=== PATIENT | male | born 1955 ===

== ENCOUNTER 2018-07-21 12:12 | Inpatient (IN) | payer BC, MEDICARE ==
[2018-07-21 12:12] VITALS: BMI 40.1
--- NOTE | 2018-07-21 13:24 | C.PDOC ---
History Of Present Illness 62 y/o male presents to the ER complaining of right sided headache which has been present for the past 3- 4 days. Patient states that he heard a "popping" sound, he had nosebleed and bleeding from his mouth for 1 minute. Patient repo rts that the headache is worse with movement of his head and he has associated dizziness. He notes that his vision has become more blurry recently. Denies having LOC, weakness, and numbness. <Taylor Campos - Last Filed: 07/21/18 19:15> History Per: Patient History/Exam Limitations: no limitations Onset/Duration Of Symptoms: Days Current Symptoms Are (Timing): Still Present Severity: Moderate <Taylor Campos - Last Filed: 07/21/18 19:15> <Jose De Jesus Ulrich - Last Filed: 07/21/18 19:32> Time Seen by Provider: 07/21/18 13:18 Chief Complaint (Nursing): Chest Pain Past Medical History Reviewed: Historical Data, Nursing Documentation, Vital Signs Vital Signs: Last Vital Signs Temp 98.4 F 07/21/18 12:21 Pulse 108 H 07/21/18 12:21 Resp 18 07/21/18 12:21 BP 148/90 07/21/18 12:21 Pulse Ox 97 07/21/18 12:21 - Medical History PMH: Arthritis, CAD, Diabetes, HTN, Hypercholesterolemia, Hypothyroidism Denies: Chronic Kidney Disease Other Surgeries: Hx of surgeries Family History: States: No Known Family Hx - Social History Hx Alcohol Use: No Hx Substance Use: No <Taylor Campos - Last Filed: 07/21/18 19:15> Vital Signs: Last Vital Signs Temp 98.3 F 07/21/18 18:55 Pulse 91 H 07/21/18 18:55 Resp 19 07/21/18 18:55 BP 125/79 07/21/18 18:55 Pulse Ox 97 07/21/18 19:18 <Jose De Jesus Ulrich - Last Filed: 07/21/18 19:32> Review Of Systems Except As Marked, All Systems Reviewed And Found Negative. Constitutional: Negative for: Fever, Chills Eyes: Positive for: Vision Change Neurological: Positive for: Headache, Dizziness. Negative for: Weakness, Numbness <Taylor Campos - Last Filed: 07/21/18 19:15> Physical Exam - Physical Exam Appears: Non-toxic, No Acute Distress Skin: Normal Color, Warm, Dry Head: Atraumatic, Normacephalic Eye(s): bilateral: EOMI, right: Other (mild conjunctival injection), left: Normal Inspection Ear(s): Bilateral: Normal Nose: Normal, No Epistaxis Oral Mucosa: Moist Throat: Normal, No Erythema, No Exudate Neck: Supple Chest: Symmetrical, No Tenderness (chest wall tenderness) Cardiovascular: Rhythm Regular Respiratory: Normal Breath Sounds, No Rales, No Rhonchi, No Wheezing Gastrointestinal/Abdominal: Soft, No Tenderness, No Guarding, No Rebound, Other (obese) Neurological/Psych: Oriented x3, Normal Speech <Taylor Campos - Last Filed: 07/21/18 19:15> ED Course And Treatment - Laboratory Results Result Diagrams: 07/21/18 13:44 07/21/18 13:44 O2 Sat by Pulse Oximetry: 97 (RA) Pulse Ox Interpretation: Normal - Other Rad CXR X-Ray: Viewed By Me, Read By Radiologist Interpretation: Date of service: 07/21/2018. PROCEDURE: CHEST RADIOGRAPH, 1 VIEW. HISTORY: chest pain. COMPARISON: None available. FINDINGS: LUNGS: Poor inspiration with low lung volumes, crowded bronchovascular markings and mild bibasilar atelectasis. PLEURA: No pneumothorax or pleural fluid seen. CARDIOVASCULAR: Marked cardiomegaly. OSSEOUS STRUCTURES: No significant abnormalities. VISUALIZED UPPER ABDOMEN: Normal. OTHER FINDINGS: None. IMPRESSION: Poor inspiration with low lung volumes, crowded bronchovascular markings and mild bibasilar atelectasis. - CT Scan/US CT-Head Other Rad Studies (CT/US): Read By Radiologist, Radiology Report Reviewed CT/US Interpretation: Date of service: 07/21/2018. PROCEDURE: CT HEAD WITHOUT CONTRAST. HISTORY: headache, dizziness. COMPARISON: None available. TECHNIQUE: Axial computed tomography images were obtained through the head/brain without intravenous contrast. Radiation dose: Total exam DLP = 1279.39 mGy-cm. This CT exam was performed using one or more of the following dose reduction techniques: Automated exposure control, adjustment of the mA and/or kV according to patient size, and/or use of iterative reconstruction technique. FINDINGS: HEMORRHAGE: No intracranial hemorrhage. BRAIN: Diffuse atrophy with prominence of the ventricles and sulci noted. No mass effect or edema. Intracranial atherosclerosis. The laguerre-white matter differentiation appears intact. Please note that MRI with diffusion imaging is more sensitive in the detection of acute ischemic event. VENTRICLES: No hydrocephalus. CALVARIUM: Unremarkable. PARANASAL SINUSES: Unremarkable as visualized. No significant inflammatory changes. MASTOID AIR CELLS: Unremarkable as visualized. No inflammatory changes. OTHER FINDINGS: None. IMPRESSION: No acute intracranial pathology identified. Findings as above. <Taylor Campos - Last Filed: 07/21/18 19:15> - Laboratory Results Result Diagrams: 07/21/18 13:44 07/21/18 13:44 <Jose De Jesus Ulrich - Last Filed: 07/21/18 19:32> Medical Decision Making Medical Decision Making: Plan: --Labs --EKG --CXR --CT-Head --IV Fluids --Aspirin PO The case was discussed with Dr. Quiroz (Ophto oncall) who agrees that the patient n eeds admission but needs a temporal artery biopsy. Case was discussed with Dr. Pozo (neuro oncall) who states to call [facility]. Case was discussed wtih Dr. Escobedo who states he will see the patient and consult for possible biopsy. <Taylor Campos - Last Filed: 07/21/18 19:15> Disposition - Disposition Disposition Time: 19:18 <Taylor Campos - Last Filed: 07/21/18 19:15> Discussed With Dr.: Yemi Gifford Jr. Comment: accepted the pt on his service and took over the care at 7:30 PM Doctor Will See Patient In The: ED Counseled Patient/Family Regarding: Studies Performed, Diagnosis <Jose De Jesus Ulrich - Last Filed: 07/21/18 19:32> - Disposition Disposition: HOSPITALIZED Condition: STABLE Forms: [facility] (Thai) - Clinical Impression Clinical Impression: Intractable headache, Temporal arteritis - PA / MACHINE STAMPER / Resident Statement MD/DO has reviewed & agrees with the documentation as recorded. - Scribe Statement The provider has reviewed the documentation as recorded by the Karen Cueto Provider Attestation All medical record entries made by the Scribe were at my direction and personally dictated by me. I have reviewed the chart and agree that the record accurately reflects my personal performance of the history, physical exam, medical decision making, and the department course for this patient. I have also personally directed, reviewed, and agree with the discharge instructions and disposition. <Taylor Campos - Last Filed: 07/21/18 19:15> Physician Patient Turnover Patient Signed Over To: Jose De Jesus Ulrich Handoff Comments: Pending re-eval and admission <Taylor Campos - Last Filed: 07/21/18 19:15> Decision To Admit <Taylor Campos - Last Filed: 07/21/18 19:15> - Pt Status Changed To: Hospital Disposition Of: Inpatient - Admit Certification Admit to Inpatient:: After my assessment, the patient will require hospitalization for at least two midnights. This is because of the severity of symptoms shown, intensity of services needed, and/or the medical risk in this patient being treated as an outpatient. - InPatient: Physician Admission Certification: I certify that this patient requires 2 or more midnights of care for the following reason:: After my assessment, the patient will require hospitalization for at least two midnights. This is because of the severity of symptoms shown, intensity of services needed, and/or the medical risk in this patient being treated as an outpatient. - . Bed Request Type: Regular Admitting Physician: Yemi Gifford Jr. <Jose De Jesus Ulrich - Last Filed: 07/21/18 19:32> - . Patient Diagnosis: Intractable headache, Temporal arteritis
[2018-07-21] MEDS ORDERED: Aspirin 325 mg EC Tablets PO STA (13:25)
[2018-07-21 13:51] LABS: BASO # 0.1 K/uL (0.0-0.2); BASO % 1.4 % (0.0-2.0); EOS # 0.5 K/uL (0.0-0.7); EOS % 6.6 % (0.0-4.0); HEMOGLOBIN 13.6 g/dL (12.0-18.0); LYMPH # 2.7 K/uL (1.0-4.3); LYMPH % 34.8 % (20.0-40.0); MEAN CELL VOLUME 84.5 fL (80.0-94.0); MEAN CORPUSCULAR HEMOGLOBIN 29.1 pg (27.0-31.0); MEAN CORPUSCULAR HGB CONC 34.5 g/dL (33.0-37.0); MEAN PLATELET VOLUME 8.1 fL (7.2-11.7); MONO # 0.6 K/uL (0.0-0.8); MONO % 7.7 % (0.0-10.0); NEUT # 3.8 K/uL (1.8-7.0); NEUT % 49.5 % (50.0-75.0); NRBC % 0.1 % (0.0-2.0); RBC 4.66 Mil/uL (4.40-5.90); RED CELL DISTRIBUTION WIDTH 13.6 % (11.5-14.5); WHITE BLOOD COUNT 7.7 K/uL (4.8-10.8)
[2018-07-21 14:02] LABS: INR 1.1; PROTHROMBIN TIME 12.5 SECONDS (9.7-12.2)
[2018-07-21 14:03] LABS: BLOOD UREA NITROGEN 11 mg/dL (9-20); GFR NON-AFRICAN AMERICAN > 60
[2018-07-21 14:04] LABS: ALB/GLOB RATIO 1.2 (1.0-2.1); ALT/SGPT 24 U/L (21-72); AST/SGOT 18 U/L (17-59); CALCIUM 9.2 mg/dl (8.6-10.4)
--- NOTE | 2018-07-21 14:11 | RAD ---
Date of service: 07/21/2018 PROCEDURE: CHEST RADIOGRAPH, 1 VIEW HISTORY: chest pain COMPARISON: None available. FINDINGS: LUNGS: Poor inspiration with low lung volumes, crowded bronchovascular markings and mild bibasilar atelectasis. PLEURA: No pneumothorax or pleural fluid seen. CARDIOVASCULAR: Marked cardiomegaly. OSSEOUS STRUCTURES: No significant abnormalities. VISUALIZED UPPER ABDOMEN: Normal. OTHER FINDINGS: None. IMPRESSION: Poor inspiration with low lung volumes, crowded bronchovascular markings and mild bibasilar atelectasis.
[2018-07-21 14:15] LABS: B-TYPE NATRIURETIC PEPTIDE 31.1 pg/mL (0-900)
[2018-07-21] MEDS ORDERED: Sodium Chloride 0.9% 1,000 ML IV ONE (14:43)
[2018-07-21] MEDS ORDERED: DiphenhydrAMINE 50 mg/ml Inj IVP STA (14:43)
[2018-07-21] MEDS ORDERED: Sodium Chloride 0.9% 1,000 ML ONE (15:05)
--- NOTE | 2018-07-21 15:50 | CT ---
Date of service: 07/21/2018 PROCEDURE: CT HEAD WITHOUT CONTRAST. HISTORY: headache, dizziness COMPARISON: None available. TECHNIQUE: Axial computed tomography images were obtained through the head/brain without intravenous contrast. Radiation dose: Total exam DLP = 1279.39 mGy-cm. This CT exam was performed using one or more of the following dose reduction techniques: Automated exposure control, adjustment of the mA and/or kV according to patient size, and/or use of iterative reconstruction technique. FINDINGS: HEMORRHAGE: No intracranial hemorrhage. BRAIN: Diffuse atrophy with prominence of the ventricles and sulci noted. No mass effect or edema. Intracranial atherosclerosis. The laguerre-white matter differentiation appears intact. Please note that MRI with diffusion imaging is more sensitive in the detection of acute ischemic event. VENTRICLES: No hydrocephalus. CALVARIUM: Unremarkable. PARANASAL SINUSES: Unremarkable as visualized. No significant inflammatory changes. MASTOID AIR CELLS: Unremarkable as visualized. No inflammatory changes. OTHER FINDINGS: None. IMPRESSION: No acute intracranial pathology identified. Findings as above.
[2018-07-21] MEDS ORDERED: DiphenhydrAMINE 50 mg/ml Inj ONE (16:21)
[2018-07-21] MEDS ORDERED: Dextrose 50% SYRINGE Inj (50 ml) IV PRN (20:47)
[2018-07-21] MEDS ORDERED: Glucagon Recombinant 1 mg Inj IM PRN (20:47)
[2018-07-21] MEDS ORDERED: methylPREDNISolone 1 GM in Sodium Chloride 0.9% 250 ML IV ONE (21:00)
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
[2018-07-21] MEDS: (Novolin R) Insulin Human Regular 100 units/ml vial SC SCH (21:41)
[2018-07-21] MEDS ORDERED: (Novolin R) Insulin Human Regular 100 units/ml vial ONE (21:43)
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
[2018-07-21] MEDS ORDERED: Insulin Detemir 100 units/ml Vial (Levemir) SC SCH (22:00)
[2018-07-22] MEDS ORDERED: (Novolin R) Insulin Human Regular 100 units/ml vial SC ONE (06:17)
--- NOTE | 2018-07-22 08:01 | CP.PCM.PN ---
Subjective - Date & Time of Evaluation Date of Evaluation: 07/22/18 Time of Evaluation: 06:45 - Subjective Subjective: General Surgery: Dr Escobedo Pt S&E. CONRADO. Reports headache improved. Still present to some degree on right side. Vision still blurry. Has not been started on steroid therapy. Objective - Vital Signs/Intake and Output Vital Signs (last 24 hours): Temp Pulse Resp BP Pulse Ox 98.2 F 73 20 132/83 97 07/22/18 00:00 07/22/18 00:00 07/22/18 00:00 07/22/18 00:00 07/22/18 00:00 Intake and Output: 07/22/18 07/22/18 06:59 18:59 Intake Total 490 Balance 490 - Medications Medications: Current Medications Dextrose (Dextrose 50% Inj) 0 ml IV STAT PRN; Protocol PRN Reason: Hypoglycemia Protocol Dextrose (Glutose 15) 0 gm PO ONCE PRN; Protocol PRN Reason: Hypoglycemia Protocol Glucagon (Glucagen Diagnostic Kit) 0 mg IM STAT PRN; Protocol PRN Reason: Hypoglycemia Protocol Dextrose (Dextrose 5% In Water 1000 Ml) 1,000 mls @ 0 mls/hr IV .Q0M PRN; Pro tocol PRN Reason: Hypoglycemia Protocol Influenza Virus Vaccine (Fluzone Quad [id number]) 60 mcg IM .ONCE ONE Stop: 07/24/18 10:06 Insulin Detemir (Levemir) 12 unit SC [facility] Last Admin: 07/21/18 22:23 Dose: 12 unit Insulin Human Regular (Novolin R) 0 unit SC [facility]; Protocol Last Admin: 07/21/18 21:41 Dose: 3 units Pneumococcal Polyvalent Vaccine (Pneumovax 23 Vaccine) 0.5 ml IM .ONCE ONE Stop: 07/24/18 10:01 - Labs Labs: 07/21/18 13:44 07/21/18 13:44 PT 12.5 SECONDS (9.7-12.2) H 07/21/18 13:44 INR 1.1 07/21/18 13:44 APTT 31 SECONDS (21-34) 07/21/18 13:44 - Constitutional Appears: Non-toxic, No Acute Distress - ENT Exam ENT Exam: Mucous Membranes Moist - Respiratory Exam Respiratory Exam: absent: Accessory Muscle Use, Respiratory Distress - Cardiovascular Exam Cardiovascular Exam: REGULAR RHYTHM. absent: Tachycardia - GI/Abdominal Exam GI & Abdominal Exam: Soft. absent: Distended, Firm, Tenderness - Neurological Exam Neurological Exam: Alert, Awake, Oriented x3 - Psychiatric Exam Psychiatric exam: Normal Affect, Normal Mood Assessment and Plan - Assessment and Plan (Free Text) Assessment: 62M w/ right sided headache - possible temporal arteritis Plan: no urgency for biopsy can be done later in week or as outpatient recommend empiric therapy w/ appropriately dosed prednisone d/w Dr Gregg Brandt, PGY4
[2018-07-22] MEDS: (Novolin R) Insulin Human Regular 100 units/ml vial SC SCH ×4 (08:38→22:01)
--- NOTE | 2018-07-22 13:16 | CT ---
Date of service: 07/22/2018 PROCEDURE: CT NECK WITHOUT CONTRAST HISTORY: pt with headache and neck tenderness COMPARISON: None available. TECHNIQUE: CT of the neck without intravenous contrast. Coronal and sagittal reformats generated. Radiation dose: DLP 480.72 mGy-cm This CT exam was performed using one or more of the following dose reduction techniques: Automated exposure control, adjustment of the mA and/or kV according to patient size, and/or use of iterative reconstruction technique. FINDINGS: NASOPHARYNX: Unremarkable. SUPRAHYOID NECK: Parapharyngeal spaces are clear. A normal epiglottis is identified. There is asymmetry with soft tissue thickening apparent at the right vallecular, likely due to vallecular collapse. However, evaluation is grossly limited by the absence of intravenous contrast. Correlation with contrast-enhanced computed tomography and direct visual inspection is advised. The left valleculae is unremarkable. The piriform sinuses are grossly normal. INFRAHYOID NECK: The larynx is collapsed and is suboptimally evaluated. There is no gross abnormality. The vocal cords are not evaluated. MASS: None. GLANDS: Parotid and submandibular glands unremarkable. Normal size thyroid gland, without nodule. LYMPH NODES: Shotty level 1 and 2 cervical nodes without significant enlarged cervical lymph nodes identified. CERVICAL SPINE: No fracture or focal lesion. Degenerative disc disease C4-5 through C6-7. OTHER FINDINGS: None. IMPRESSION: Shotty cervical lymph nodes without significant lymphadenopathy. Asymmetry of the right vallecula possibly due to collapse. However, examination grossly limited by the lack of intravenous contrast administration. Recommend correlation with contrast-enhanced CT examination of the neck as well as direct visual inspection at the right vallecular. Larynx collapsed. No other significant abnormality.
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
--- NOTE | 2018-07-22 13:49 | CP.PCM.PN ---
Subjective - Date & Time of Evaluation Date of Evaluation: 07/22/18 Time of Evaluation: 09:15 - Subjective Subjective: PGY-[address] Gifford Patient is seen and examined at bedside. Patient states headaches on right side of face and behind ear are improving. Patient states headache comes and goes. Patient admit to unchanged blurry vision. Patient denies fevers, chills, chest pain, shortness of breath, nausea, vomiting, constipation, or diarrhea. Patient states his blood sugars were read as high this morning. Objective - Vital Signs/Intake and Output Vital Signs (last 24 hours): Temp Pulse Resp BP Pulse Ox 97.9 F 87 20 123/73 99 07/22/18 08:00 07/22/18 08:00 07/22/18 08:00 07/22/18 08:00 07/22/18 08:00 Intake and Output: 07/22/18 07/22/18 06:59 18:59 Intake Total 490 Balance 490 - Medications Medications: Current Medications Dextrose (Dextrose 50% Inj) 0 ml IV STAT PRN; Protocol PRN Reason: Hypoglycemia Protocol Dextrose (Glutose 15) 0 gm PO ONCE PRN; Protocol PRN Reason: Hypoglycemia Protocol Glimepiride (Amaryl) 4 mg PO Q12H [facility] Last Admin: 07/22/18 12:16 Dose: 4 mg Glucagon (Glucagen Diagnostic Kit) 0 mg IM STAT PRN; Protocol PRN Reason: Hypoglycemia Protocol Heparin Sodium (Porcine) (Heparin) 5,000 units SC Q12 [facility] Last Admin: 07/22/18 11:00 Dose: 5,000 units Dextrose (Dextrose 5% In Water 1000 Ml) 1,000 mls @ 0 mls/hr IV .Q0M PRN; Protocol PRN Reason: Hypoglycemia Protocol Influenza Virus Vaccine (Fluzone Quad [id number]) 60 mcg IM .ONCE ONE Stop: 07/24/18 10:06 Insulin Detemir (Levemir) 12 unit SC Q12 [facility] Insulin Human Regular (Novolin R) 0 unit SC ACHS [facility]; Protocol Last Admin: 07/22/18 11:39 Dose: 12 units Methylprednisolone (Solu-Medrol) 125 mg IV DAILY [facility] Pneumococcal Polyvalent Vaccine (Pneumovax 23 Vaccine) 0.5 ml IM .ONCE ONE Stop: 07/24/18 10:01 - Labs Labs: 07/21/18 13:44 10/08/18 13:44 PT 12.5 SECONDS (9.7-12.2) H 07/21/18 13:44 INR 1.1 07/21/18 13:44 APTT 31 SECONDS (21-34) 07/21/18 13:44 - Constitutional Appears: Non-toxic, No Acute Distress - Head Exam Head Exam: ATRAUMATIC, NORMAL INSPECTION, NORMOCEPHALIC Additional comments: no tenderness on palpation left temporal area. - Eye Exam Eye Exam: EOMI, Normal appearance, PERRL Pupil Exam: NORMAL ACCOMODATION - ENT Exam ENT Exam: Mucous Membranes Moist, Normal Exam - Neck Exam Neck Exam: Full ROM, Normal Inspection - Respiratory Exam Respiratory Exam: Clear to Ausculation Bilateral, NORMAL BREATHING PATTERN. absent: Rales, Rhonchi, Wheezes - Cardiovascular Exam Cardiovascular Exam: REGULAR RHYTHM Additional comments: +S3 sound on ascultation - GI/Abdominal Exam GI & Abdominal Exam: Distended, Soft, Tenderness, Normal Bowel Sounds Additional comments: right and left lower quadrant pain on deep palpation - Extremities Exam Extremities Exam: Full ROM, Normal Capillary Refill, Normal Inspection - Back Exam Back Exam: NORMAL INSPECTION - Neurological Exam Neurological Exam: Alert, Awake, CN II-XII Intact, Oriented x3 Neuro motor strength exam: Left Upper Extremity: 5, Right Upper Extremity: 5 - Psychiatric Exam Psychiatric exam: Normal Affect, Normal Mood - Skin Skin Exam: Dry, Intact, Normal Color, Warm Assessment and Plan - Assessment and Plan (Free Text) Plan: Headache, r/o temporal arteritis - pt with R-sided headache and vision changes - CT head: no acute findings - CXR: mild bibasilar atelectasis - CT soft tissue/neck- no significant findings - EKG: sinus tachy at 104 bpm with LAD - ESR elevated at 45 - ED course : solumedrol 1000mg IV in ED, reglan 10 IV in ED - f/u MRA head w/o contrast - test done, results pending - Ophtho consulted, Dr. Quiroz - recommends temporal artery biopsy - Vascular Sx consulted, Dr. Escobedo- no urgency for bx, can be done later in week or as outpatient. Recommend empiric therapy with approriate dose prednisone. will continue to follow up with surgery in terms of bx Meds: Prednisone 125mg IV Qdaily DM - FSG in ED: 330 - POC glucose - 464 - accuchecks ACHS - levemir 12u Q12 - glimepiride 4mg PO Q12hr - sliding scale high dose ACHS - hypoglycemia protocol S3 Heart sound, r/o cardiac abnormality - F/u echo - pending results PPX: DVT: SCDs DM diet pain management - tylenol 650mg PO PRN for moderate pain Plan discussed with Dr Gfiford. Medical Management as per Dr Balta Elam, PGY-1
--- NOTE | 2018-07-22 21:22 | CON ---
DATE: 07/22/2018 HISTORY OF PRESENT ILLNESS: The patient reports about a 5-day history of vision loss in his right eye. He does describe a headache with loss of vision. He reports that each day the vision got worse, and he feels that the vision is getting dimmer. He also reports no other ocular history. He reports he has not seen an foreclosure specialist before at all. He does report a history of diabetes. He reports no ocular surgeries or lasers. MEDICATIONS: He reports no oral medications. ALLERGIES: HE REPORTS THAT HE HAS ALLERGY TO METFORMIN. PHYSICAL EXAMINATION: On today's exam, his vision in his right eye is 2400 with a near card. His left eye is 20/80 with a near card. He has an afferent pupillary defect in the right eye. He has nuclear sclerotic cataracts in both eyes, and his eye pressure is 14 mmHg in both eyes. His posterior exam shows significant cupping. He has 0.9 nerves in both eyes with pallor in his right eye. He has no retinal hemorrhages or retinal edema. His extraocular movements are within normal limits. ASSESSMENT: 1. He has cataracts in both eyes. 2. The patient is being admitted for temporal arteritis with a history of right vision loss, elevated erythrocyte sedimentation rate. There is a neural and vascular consult to check on the patient. He is being treated with IV steroids for possible temporal arteritis. 3. He does appear to have signs of glaucoma. His pressures are within normal limits today. When he is discharged, he is to make an appointment, but he most likely need treatment for his glaucoma and further evaluation. He has no signs of diabetic retinopathy in both eyes. If there are any questions, please contact to our office [phone]. Darvin Quiroz MD
[2018-07-22] MEDS: Insulin Detemir 100 units/ml Vial (Levemir) SC SCH (22:02)
[2018-07-23 07:27] LABS: BASO % 0.3 % (0.0-2.0); HEMOGLOBIN 13.1 g/dL (12.0-18.0); LYMPH # 2.4 K/uL (1.0-4.3); LYMPH % 17.9 % (20.0-40.0); MEAN CELL VOLUME 84.4 fL (80.0-94.0); MEAN CORPUSCULAR HGB CONC 34.3 g/dL (33.0-37.0); MONO # 0.7 K/uL (0.0-0.8); MONO % 5.3 % (0.0-10.0); NEUT # 10.4 K/uL (1.8-7.0); NEUT % 76.5 % (50.0-75.0); RBC 4.54 Mil/uL (4.40-5.90); RED CELL DISTRIBUTION WIDTH 13.5 % (11.5-14.5)
[2018-07-23] MEDS: (Novolin R) Insulin Human Regular 100 units/ml vial SC SCH ×4 (07:30→21:49)
[2018-07-23 07:33] LABS: WHITE BLOOD COUNT 13.7 K/uL (4.8-10.8)
[2018-07-23 07:52] LABS: ALB/GLOB RATIO 1.3 (1.0-2.1); ALBUMIN 3.7 g/dL (3.5-5.0); ALT/SGPT 19 U/L (21-72); AST/SGOT 14 U/L (17-59); BLOOD UREA NITROGEN 13 mg/dL (9-20); CALCIUM 9.4 mg/dl (8.6-10.4); GFR NON-AFRICAN AMERICAN > 60
--- NOTE | 2018-07-23 07:56 | CARD ---
APPROVED REPORT Date of service: 07/22/2018 EXAM: Two-dimensional and M-mode echocardiogram with Doppler and color Doppler. Other Information Quality : AverageRhythm : INDICATION Cardiac Disease: CAD Chest Pain Palpitations TDS RISK FACTORS Hypertension Obesity Hyperlipidemia Diabetes 2D DIMENSIONS IVSd1.4 (0.7-1.1cm)Aortic Root (2D)3.1 (2.0-3.7cm) LVDd3.4 (3.9-5.9cm)PWd1.1 (0.7-1.1cm) LA [id number] (18-58mL)LVDs2.4 (2.5-4.0cm) FS (%) 27.3 %LVEF (%)56.0 (>50%) LVEF (Pacheco's)55 %IVC0.00 cm M-Mode DIMENSIONS Left Atrium (MM)5.13 (2.5-4.0cm)IVSd1.07 (0.7-1.1cm) Aortic Root3.36 (2.2-3.7cm)LVDd5.24 (4.0-5.6cm) Aortic Cusp Exc.2.29 (1.5-2.0cm)PWd0.77 (0.7-1.1cm) FS (%) 33 %LVDs3.50 (2.0-3.8cm) LVEF (%)60 (>50%) Mitral Valve MV E Ebekhqee147.6cm/sMV A Xedlrvih88.7cm/sE/A ratio2.6 TDI Lateral E' Peak V19.14cm/sMedial E' Peak V13.29cm/sE/Lateral E'7.0 E/Medial E'10.1 Tricuspid Valve TR Peak [id number]/sTR Peak [id number] <Conclusion> Suboptimal study Left ventricle: thickness: normal; size: normal; overall ejection fraction: 65%: diastolic filling pressures: normal Mitral valve: annulus: normal: leaflets: normal: excursion: normal; no significant trans-mitral gradient: no significant incompetence: left atrium: normal Aortic valve: leaflets: mild calcific thickening; excursion: normal; no significant trans-aortic gradient: No significant incompetence: aortic root: normal Right sided Structures: Pulmonary valve: normal; no significant incompetence; Tricuspid valve: normal; no significant incompetence: Intra-cardiac hemodynamics: pulmonary systolic pressures: normal; central venous pressures: normal No pericardial effusion
--- NOTE | 2018-07-23 08:16 | CARD ---
APPROVED REPORT Date of service: 07/21/2018 EKG Measurement Heart [id number] <Conclusion> Sinus tachycardia left anterior fascicular block Minimal voltage criteria for LVH, may be normal variant Abnormal ECG
[2018-07-23] MEDS ORDERED: Propofol 10 mg/ml Inj (20 ML) ONE (09:31)
[2018-07-23] MEDS ORDERED: Midazolam 2 MG/2 ML VIAL ONE (09:31)
[2018-07-23] MEDS ORDERED: Lidocaine Hydrochloride 10 ML INJ ONE ×2 (09:41→09:42)
[2018-07-23] MEDS: Insulin Detemir 100 units/ml Vial (Levemir) SC SCH ×2 (10:04→21:50)
--- NOTE | 2018-07-23 10:20 | PCM.SURG1 ---
Surgeon's Initial Post Op Note - Surgeon's Notes Surgeon: yajaira Denial Management Representative: 0 Type of Anesthesia: IV Sedation Anesthesia Administered By: wayne Pre-Operative Diagnosis: suspected temporal arteritis Operative Findings: grossly normal Post-Operative Diagnosis: same Operation Performed: right superficial temporal artery biopsy Specimen/Specimens Removed: vessel Estimated Blood Loss: EBL {In ML}: 5 Blood Products Given: N/A Drains Used: No Drains Post-Op Condition: Good Date of Surgery/Procedure: 07/23/18 Time of Surgery/Procedure: 10:20
[2018-07-23] MEDS ORDERED: Lactated Ringer's 1,000 ML IV SCH (10:30)
--- NOTE | 2018-07-23 11:36 | MRI ---
Date of service: 07/22/2018 PROCEDURE: MRI BRAIN WITHOUT CONTRAST HISTORY: headache, R sided blurred vision COMPARISON: Noncontrast head CT 07/21/2018. TECHNIQUE: Multiplanar, multisequence MR images of the brain were obtained without intravenous contrast enhancement. FINDINGS: HEMORRHAGE: None DWI: No evidence of an acute or early subacute infarction. BRAIN PARENCHYMA: Good corticomedullary differentiation is seen. Proportional, diffuse expansion of the ventriculosulcal and cisternal spaces is appreciated with white matter signal changes compatible with diffuse cerebral atrophy and chronic microangiopathy. No suspicious extra-axial fluid collection is identified and the midline brain anatomy appears grossly nonfocal as imaged. There is no mass effect throughout. As imaged, the optic chiasm, tracts and nerves appear unremarkable. If further imaging of the optic pathways required then follow-up high-resolution orbits MRI is recommended with and without contrast. VENTRICLES: Unremarkable. No hydrocephalus. CRANIUM: Unremarkable. ORBITS: Grossly unremarkable. PARANASAL SINUSES/MASTOIDS: Clear VASCULAR SYSTEM: Skull base flow voids intact. OTHER FINDINGS: None. IMPRESSION: Mild age related neuro degenerative changes are appreciate without acute intracranial findings as discussed above. No significant interval change greater prior head CT 07/21/2018.
--- NOTE | 2018-07-23 14:31 | MRI ---
Date of service: 07/22/2018 PROCEDURE: Magnetic Resonance Angiography Brain HISTORY: headache, blurred vision, r/o CVA COMPARISON: None available. TECHNIQUE: 3D time of flight MR angiography of the intracranial arteries was performed. Rotating maximum intensity projection images were generated. FINDINGS: INTERNAL CAROTID ARTERIES: Unremarkable. The skull base, petrous, cavernous and supraclinoid segments are bilaterally widely patient. ANTERIOR CEREBRAL ARTERIES: Unremarkable. A1 and A2 segments are widely patent. Smaller distal branches unremarkable, as visualized. MIDDLE CEREBRAL ARTERIES: Unremarkable. M1 and M2 segments are widely patent. Perisylvian branches grossly symmetric. POSTERIOR CIRCULATION: Basilar Artery: Unremarkable. Distal Vertebral Arteries: Unremarkable. Posterior Cerebral Arteries: Unremarkable. Posterior Inferior Cerebellar Arteries: Unremarkable. ANEURYSM/ VASCULAR MALFORMATIONS: None. OTHER FINDINGS: None. IMPRESSION: Unremarkable MR angiography of the brain.
--- NOTE | 2018-07-23 16:23 | CP.PCM.PN ---
<Ameena Ramos - Last Filed: 07/23/18 16:20> Subjective - Date & Time of Evaluation Date of Evaluation: 07/23/18 Time of Evaluation: 16:20 - Subjective Subjective: PGY1 Neurology Progress Note for Dr. Pozo: Patient seen and evaluated at bedside this afternoon. Patient returned from undergoing Temporal Artery Biopsy and states he is in some pain at the site of biopsy, but otherwise has no acute complaints. Vision is still unchanged from yesterday. Patient denies chest pain, shortness of breath, dizziness, tremors. Objective - Vital Signs/Intake and Output Vital Signs (last 24 hours): Temp Pulse Resp BP Pulse Ox 97.8 F 79 18 125/79 100 07/23/18 10:20 07/23/18 11:00 07/23/18 11:00 07/23/18 11:00 07/23/18 11:00 Intake and Output: 07/23/18 07/23/18 06:59 18:59 Intake Total 400 Balance 400 - Medications Medications: Current Medications Acetaminophen (Tylenol 325mg Tab) 650 mg PO Q6 PRN PRN Reason: Pain, moderate (4-7) Last Admin: 07/22/18 18:17 Dose: 650 mg Dextrose (Dextrose 50% Inj) 0 ml IV STAT PRN; Protocol PRN Reason: Hypoglycemia Protocol Dextrose (Glutose 15) 0 gm PO ONCE PRN; Protocol PRN Reason: Hypoglycemia Protocol Glimepiride (Amaryl) 4 mg PO Q12H [facility] Last Admin: 07/23/18 13:09 Dose: 4 mg Glucagon (Glucagen Diagnostic Kit) 0 mg IM STAT PRN; Protocol PRN Reason: Hypoglycemia Protocol Heparin Sodium (Porcine) (Heparin) 5,000 units SC Q12 [facility] Last Admin: 07/23/18 10:03 Dose: Not Given Dextrose (Dextrose 5% In Water 1000 Ml) 1,000 mls @ 0 mls/hr IV .Q0M PRN; Protocol PRN Reason: Hypoglycemia Protocol Influenza Virus Vaccine (Fluzone Quad [id number]) 60 mcg IM .ONCE ONE Stop: 07/24/18 10:06 Insulin Detemir (Levemir) 12 unit SC Q12 [facility] Last Admin: 07/23/18 10:04 Dose: Not Given Insulin Human Regular (Novolin R) 0 unit SC ACHS [facility]; Protocol Last Admin: 07/23/18 13:08 Dose: 4 units Methylprednisolone (Solu-Medrol) 125 mg IV DAILY [facility] Last Admin: 07/23/18 13:09 Dose: 125 mg Oxycodone/Acetaminophen (Percocet 5/325 Mg Tab) 1 tab PO Q4H PRN PRN Reason: Pain, Mild (1-3) Stop: 07/26/18 10:22 Pneumococcal Polyvalent Vaccine (Pneumovax 23 Vaccine) 0.5 ml IM .ONCE ONE Stop: 07/24/18 10:01 - Labs Labs: 07/23/18 07:20 07/23/18 07:20 PT 12.5 SECONDS (9.7-12.2) H 07/21/18 13:44 INR 1.1 07/21/18 13:44 APTT 31 SECONDS (21-34) 07/21/18 13:44 - Additional Findings Additional findings: - Constitutional Appears: Non-toxic, No Acute Distress - Head Exam Head Exam: ATRAUMATIC, NORMAL INSPECTION, NORMOCEPHALIC Site of biopsy on right temporal area wound is clean without discharge and covered with clean bandage. - Eye Exam Eye Exam: EOMI, Normal appearance, PERRL. absent: Conjunctival injection, Nystagmus Pupil Exam: NORMAL ACCOMODATION - ENT Exam ENT Exam: Mucous Membranes Moist (poor dentition ) - Neck Exam Neck exam: Positive for: Full Rom, Normal Inspection. Negative for: Tenderness - Extremities Exam Extremities exam: Positive for: full ROM. Negative for: calf tenderness, joint swelling, tenderness - Back Exam Back exam: NORMAL INSPECTION - Neurological Exam Neurological exam: Alert, CN II-XII Intact, Oriented x3, Reflexes Normal Additional comments: Muscle strength 4/5 on right upper and lower extremities, 5/5 in left upper and lower extremities - Skin Additional comments: visible bilateral bruising on knee joints. Assessment and Plan - Assessment and Plan (Free Text) Assessment: Mr. Abad is a 62 year old male who was referred to us by Dr. Ulrich, and has a PMH CAD, DMT2, HTN, HLD, Hypothyroidism, Osteoarthritis, gait instability who presents to [facility] on 07/21/18 with severe R-sided headache and R-eye blurred vision x3 days. Currently status-post temporal artery biopsy. Headache & R eye blurred vision likely secondary to Temporal Arteritis - CRP=22, elevated - ESR=45, elevated - CT head: No acute findings - Soft Tissue Neck CT: Reviewed, limited due to lack of IV contrast - ECHO: no abnormal findings; LVEF 60% - MRI Brain: Mild age related neuro degenerative changes are appreciated without acute intracranial findings. No changes since prior head CT 07/21/2018. - MRA without contrast: Unremarkable - Ophthalmology consulted, recommended patient undergo temporal artery biopsy - Status post temporal artery biopsy performed by Dr. Escobedo (Vascular Surgery)- pending report - Patient was started on empiric treatment with prednisone - continue Uncontrolled Diabetes Mellitus Type 2 - Patient expressed he is unable to afford insulin due to cost of being over $400 per month - Likely exacerbated by current steroids - Patient reports he has allergy to Metformin - Surface Supervisor consulted on case, recommendations appreciated - Management per primary care team Patient seen and case discussed in detail with Dr. alexandra Ramos PGY1 <Chad Pozo - Last Filed: 07/28/18 19:28> Objective - Vital Signs/Intake and Output Vital Signs (last 24 hours): Temp Pulse Resp BP Pulse Ox 98.2 F 100 H 20 151/89 H 98 07/27/18 16:00 07/27/18 16:00 07/27/18 16:00 07/27/18 16:00 07/27/18 16:00 - Labs Labs: 07/25/18 06:46 07/25/18 06:46 PT 12.5 SECONDS (9.7-12.2) H 07/21/18 13:44 INR 1.1 07/21/18 13:44 APTT 31 SECONDS (21-34) 07/21/18 13:44 Attending/Attestation - Attestation I have personally seen and examined this patient.: Yes I have fully participated in the care of the patient.: Yes I have reviewed all pertinent clinical information, including history, physical exam and plan: Yes Notes (Text): 07/28/18 19:28 I agree with the assessment and plan. Will continue treatment for TA.
--- NOTE | 2018-07-23 16:32 | CP.PCM.PN ---
Subjective - Date & Time of Evaluation Date of Evaluation: 07/23/18 Time of Evaluation: 09:00 - Subjective Subjective: PGY-[address] Gifford Patient is seen and examined at bedside. Patient admits to felling better with headaches, but continues to have blurry eyesight on right eye. Patient admits to pain on the left side and back of the head. Patient states having some weakness. Patient denies fever, chills, chest pain, shortness of breath, nausea, vomiting, diarrhea or constipation. Patient is NPO at time of encounter for temporal artery biopsy to be performed by surgical team. Patient is able to ambulate. Objective - Vital Signs/Intake and Output Vital Signs (last 24 hours): Temp Pulse Resp BP Pulse Ox 97.8 F 79 18 125/79 100 07/23/18 10:20 07/23/18 11:00 07/23/18 11:00 07/23/18 11:00 07/23/18 11:00 Intake and Output: 07/23/18 07/23/18 06:59 18:59 Intake Total 400 Balance 400 - Medications Medications: Current Medications Acetaminophen (Tylenol 325mg Tab) 650 mg PO Q6 PRN PRN Reason: Pain, moderate (4-7) Last Admin: 07/22/18 18:17 Dose: 650 mg Dextrose (Dextrose 50% Inj) 0 ml IV STAT PRN; Protocol PRN Reason: Hypoglycemia Protocol Dextrose (Glutose 15) 0 gm PO ONCE PRN; Protocol PRN Reason: Hypoglycemia Protocol Glimepiride (Amaryl) 4 mg PO Q12H [facility] Last Admin: 07/23/18 13:09 Dose: 4 mg Glucagon (Glucagen Diagnostic Kit) 0 mg IM STAT PRN; Protocol PRN Reason: Hypoglycemia Protocol Heparin Sodium (Porcine) (Heparin) 5,000 units SC Q12 [facility] Last Admin: 07/23/18 10:03 Dose: Not Given Dextrose (Dextrose 5% In Water 1000 Ml) 1,000 mls @ 0 mls/hr IV .Q0M PRN; Protocol PRN Reason: Hypoglycemia Protocol Influenza Virus Vaccine (Fluzone Quad [id number]) 60 mcg IM .ONCE ONE Stop: 07/24/18 10:06 Insulin Detemir (Levemir) 12 unit SC Q12 [facility] Last Admin: 07/23/18 10:04 Dose: Not Given Insulin Human Regular (Novolin R) 0 unit SC ACHS [facility]; Protocol Last Admin: 07/23/18 13:08 Dose: 4 units Methylprednisolone (Solu-Medrol) 125 mg IV DAILY [facility] Last Admin: 07/23/18 13:09 Dose: 125 mg Oxycodone/Acetaminophen (Percocet 5/325 Mg Tab) 1 tab PO Q4H PRN PRN Reason: Pain, Mild (1-3) Stop: 07/26/18 10:22 Pneumococcal Polyvalent Vaccine (Pneumovax 23 Vaccine) 0.5 ml IM .ONCE ONE Stop: 07/24/18 10:01 - Labs Labs: 07/23/18 07:20 07/23/18 07:20 PT 12.5 SECONDS (9.7-12.2) H 07/21/18 13:44 INR 1.1 07/21/18 13:44 APTT 31 SECONDS (21-34) 07/21/18 13:44 - Constitutional Appears: Non-toxic, No Acute Distress - Head Exam Head Exam: ATRAUMATIC, NORMAL INSPECTION, NORMOCEPHALIC Additional comments: no tenderness of palpation of right and left temporal areas. mild pain on palpa tion of posterior side of head, near occipital area. - Eye Exam Eye Exam: EOMI, Normal appearance - ENT Exam ENT Exam: Mucous Membranes Moist, Normal Exam - Neck Exam Neck Exam: Full ROM, Normal Inspection - Respiratory Exam Respiratory Exam: Clear to Ausculation Bilateral, NORMAL BREATHING PATTERN. absent: Rales, Rhonchi, Wheezes - Cardiovascular Exam Cardiovascular Exam: REGULAR RHYTHM, +S1, +S2 - GI/Abdominal Exam GI & Abdominal Exam: Soft, Normal Bowel Sounds - Extremities Exam Extremities Exam: Full ROM, Normal Capillary Refill, Normal Inspection. absent: Tenderness - Back Exam Back Exam: Full ROM, NORMAL INSPECTION - Neurological Exam Neurological Exam: Alert, Awake, CN II-XII Intact, Oriented x3 Neuro motor strength exam: Left Upper Extremity: 5, Right Upper Extremity: 5, Left Lower Extremity: 5, Right Lower Extremity: 5 - Psychiatric Exam Psychiatric exam: Normal Affect, Normal Mood - Skin Skin Exam: Dry, Intact, Normal Color, Warm Assessment and Plan - Assessment and Plan (Free Text) Plan: Headache, r/o temporal arteritis - pt with R-sided headache and vision changes - CT head: no acute findings - CXR: mild bibasilar atelectasis - CT soft tissue/neck- no significant findings - MRI - unremarkable - MRA - unremarkable - EKG: sinus tachy at 104 bpm with LAD - ESR elevated at 45 - ED course : solumedrol 1000mg IV in ED, reglan 10 IV in ED - Ophtho consulted, Dr. Quiroz - He has cataracts in both eyes. pt admitted for temporal arteritis. patient should follow optho outpatient for cataract management. no signs of diabetic retinopathy in both eyes. - Vascular Sx consulted, Dr. Escobedo- right superficial temporal artery biopsy done on 07/23 - will follow up recs, will follow up biopsy results -Neurology consult, Dr Pozo - continue empiric treatment, waiting results from temporal artery biopsy. - will continue following up recs Meds: Prednisone 125mg IV Qdaily DM - FSG in ED: 330 - POC glucose - 273 - expected to rise due to high steroid treatment - accuchecks ACHS - levemir 12u Q12 - glimepiride 4mg PO Q12hr - change sliding scale from medium dose to sliding scale high dose ACHS - hypoglycemia protocol S3 Heart sound, r/o cardiac abnormality - F/u echo - suboptimal study, overall EF 65%, diastolic filling pressures normal (please see full report) PPX: DVT: SCDs DM diet pain management - tylenol 650mg PO PRN for moderate pain Dispo: SW is to discuss with patient of options for patient to obtain his diabetes medications. Plan discussed with Dr Gifford. Medical Management as per Dr Balta Elam, PGY-1
[2018-07-23 17:56] VITALS: RESP 20
--- NOTE | 2018-07-24 01:26 | OP ---
PROCEDURE DATE: 07/23/2018 PREOPERATIVE DIAGNOSIS: Suspected temporal arteritis. PROCEDURE CARRIED OUT: Right superficial temporal artery biopsy. SURGEON: Rigoberto Escobedo Jr., MD RADIATOR REPAIRER: None. ANESTHESIOLOGIST: Dr. Lawler. ANESTHESIA: Local sedation. INDICATION: A 62-year-old male with headache, elevated sed rate, suspected to have temporal arteritis. OPERATIVE FINDINGS: The artery appeared grossly normal. Rest of the intraoperative findings are unremarkable. A 3 cm segment was taken, this shrunk down after its removal to a smaller size and in vivo state it was 3 cm in length. DESCRIPTION OF PROCEDURE: The patient was given local anesthesia, intravenous sedation. An incision was made directly over the and marked out on the forehead. After obtaining proximal and distal control, the artery was removed from its mid section. Hemostasis was controlled. Sites oversewn and ligated. The wound was closed with subcuticular closure and Steri-Strips. Blood loss was 5 mL. Operation carried out, right superficial temporal artery biopsy. Rigoberto Escobedo Jr., MD cc: Maxx Johnson MD; Yemi Gifford MD
[2018-07-24 06:44] LABS: BASO % 0.1 % (0.0-2.0); HEMOGLOBIN 13.4 g/dL (12.0-18.0); LYMPH % 23.3 % (20.0-40.0); MEAN CELL VOLUME 83.7 fL (80.0-94.0); MEAN CORPUSCULAR HEMOGLOBIN 28.8 pg (27.0-31.0); MEAN CORPUSCULAR HGB CONC 34.4 g/dL (33.0-37.0); MONO # 0.7 K/uL (0.0-0.8); MONO % 5.7 % (0.0-10.0); NEUT % 70.9 % (50.0-75.0); RBC 4.65 Mil/uL (4.40-5.90); RED CELL DISTRIBUTION WIDTH 13.6 % (11.5-14.5); WHITE BLOOD COUNT 12.7 K/uL (4.8-10.8)
[2018-07-24 07:52] LABS: ALB/GLOB RATIO 1.2 (1.0-2.1); ALBUMIN 3.7 g/dL (3.5-5.0); ALT/SGPT 22 U/L (21-72); AST/SGOT 18 U/L (17-59); BLOOD UREA NITROGEN 14 mg/dL (9-20); CALCIUM 9.5 mg/dl (8.6-10.4); GFR NON-AFRICAN AMERICAN > 60
--- NOTE | 2018-07-24 08:00 | CP.PCM.PN ---
Subjective - Date & Time of Evaluation Date of Evaluation: 07/24/18 Time of Evaluation: 06:30 - Subjective Subjective: Surgery progress note for Dr. Escobedo Patient seen and examined at bedside. complains of persistent headache and blurry vision on the right and some tenderness at the biopsy site. Objective - Vital Signs/Intake and Output Vital Signs (last 24 hours): Temp Pulse Resp BP Pulse Ox 97.5 F L 99 H 20 145/85 95 07/24/18 07:50 07/24/18 07:50 07/24/18 07:50 07/24/18 07:50 07/24/18 07:50 Intake and Output: 07/24/18 07/24/18 06:59 18:59 Intake Total 200 Balance 200 - Medications Medications: Current Medications Acetaminophen (Tylenol 325mg Tab) 650 mg PO Q6 PRN PRN Reason: Pain, moderate (4-7) Last Admin: 07/22/18 18:17 Dose: 650 mg Dextrose (Dextrose 50% Inj) 0 ml IV STAT PRN; Protocol PRN Reason: Hypoglycemia Protocol Dextrose (Glutose 15) 0 gm PO ONCE PRN; Protocol PRN Reason: Hypoglycemia Protocol Glimepiride (Amaryl) 4 mg PO Q12H [facility] Last Admin: 07/23/18 21:49 Dose: 4 mg Glucagon (Glucagen Diagnostic Kit) 0 mg IM STAT PRN; Protocol PRN Reason: Hypoglycemia Protocol Heparin Sodium (Porcine) (Heparin) 5,000 units SC Q12 [facility] Last Admin: 07/23/18 21:45 Dose: 5,000 units Dextrose (Dextrose 5% In Water 1000 Ml) 1,000 mls @ 0 mls/hr IV .Q0M PRN; Protocol PRN Reason: Hypoglycemia Protocol Influenza Virus Vaccine (Fluzone Quad [id number]) 60 mcg IM .ONCE ONE Stop: 07/24/18 10:06 Insulin Detemir (Levemir) 12 unit SC Q12 [facility] Last Admin: 07/23/18 21:50 Dose: 12 units Insulin Human Regular (Novolin R) 0 unit SC ACHS [facility]; Protocol Last Admin: 07/23/18 21:49 Dose: 4 units Methylprednisolone (Solu-Medrol) 125 mg IV DAILY [facility] Last Admin: 07/23/18 13:09 Dose: 125 mg Oxycodone/Acetaminophen (Percocet 5/325 Mg Tab) 1 tab PO Q4H PRN PRN Reason: Pain, Mild (1-3) Stop: 07/26/18 10:22 Pneumococcal Polyvalent Vaccine (Pneumovax 23 Vaccine) 0.5 ml IM .ONCE ONE Stop: 07/24/18 10:01 - Labs Labs: 07/24/18 06:29 07/24/18 06:29 PT 12.5 SECONDS (9.7-12.2) H 07/21/18 13:44 INR 1.1 07/21/18 13:44 APTT 31 SECONDS (21-34) 07/21/18 13:44 - Constitutional Appears: Well, Non-toxic, No Acute Distress - Head Exam Head Exam: ATRAUMATIC, NORMOCEPHALIC Additional comments: surgical dressing over the right christianity c/d/i, no surrounding erythema, no drainage - Eye Exam Eye Exam: Normal appearance. absent: Conjunctival injection, Scleral icterus - ENT Exam ENT Exam: Mucous Membranes Moist, Normal Oropharynx - Respiratory Exam Respiratory Exam: NORMAL BREATHING PATTERN. absent: Accessory Muscle Use, Respiratory Distress - GI/Abdominal Exam GI & Abdominal Exam: absent: Distended - Neurological Exam Neurological Exam: Alert, Awake, Oriented x3 - Psychiatric Exam Psychiatric exam: Normal Affect, Normal Mood - Skin Skin Exam: Dry, Normal Color, Warm Assessment and Plan - Assessment and Plan (Free Text) Assessment: 62M with right sided headache and blurry vision POD#1 s/p temporal artery biopsy Plan: No further surgical intervention--dressing may be removed tomorrow, patient should follow up with Dr. Escobedo in his office in 2 weeks F/U path management per primary Discussed with Dr. Escobedo who agrees with above Bernie Oliveira, PGY2
[2018-07-24] MEDS: (Novolin R) Insulin Human Regular 100 units/ml vial SC SCH ×4 (09:00→21:21)
[2018-07-24] MEDS ORDERED: Pneumococcal 23-Valent Vaccine IM ONE (10:00)
[2018-07-24] MEDS ORDERED: Influenza Vaccine 60 MCG/0.5 ML SYR (3 yr & up) IM ONE (10:05)
[2018-07-24] MEDS: Oxycodone/Acetaminophen 5/325 mg Tab PO PRN (11:39)
[2018-07-24] MEDS: Insulin Detemir 100 units/ml Vial (Levemir) SC SCH ×2 (12:07→21:21)
--- NOTE | 2018-07-24 16:20 | CP.PCM.PN ---
Subjective - Date & Time of Evaluation Date of Evaluation: 07/24/18 Time of Evaluation: 03:15 - Subjective Subjective: Patient examined at bedside. No acute events overnight. Pt still reporting blurry vision, headache and some pain/discomfort at biopsy site. Denies chest pain, SOB, nausea, diarrhea Objective - Vital Signs/Intake and Output Vital Signs (last 24 hours): Temp Pulse Resp BP Pulse Ox 97.5 F L 99 H 20 145/85 95 07/24/18 07:50 07/24/18 07:50 07/24/18 07:50 07/24/18 07:50 07/24/18 07:50 Intake and Output: 07/24/18 07/24/18 06:59 18:59 Intake Total 200 Balance 200 - Medications Medications: Current Medications Acetaminophen (Tylenol 325mg Tab) 650 mg PO Q6 PRN PRN Reason: Pain, moderate (4-7) Last Admin: 07/22/18 18:17 Dose: 650 mg Dextrose (Dextrose 50% Inj) 0 ml IV STAT PRN; Protocol PRN Reason: Hypoglycemia Protocol Dextrose (Glutose 15) 0 gm PO ONCE PRN; Protocol PRN Reason: Hypoglycemia Protocol Glimepiride (Amaryl) 4 mg PO Q12H [facility] Last Admin: 07/24/18 12:07 Dose: 4 mg Glucagon (Glucagen Diagnostic Kit) 0 mg IM STAT PRN; Protocol PRN Reason: Hypoglycemia Protocol Heparin Sodium (Porcine) (Heparin) 5,000 units SC Q12 [facility] Last Admin: 07/24/18 11:41 Dose: 5,000 units Dextrose (Dextrose 5% In Water 1000 Ml) 1,000 mls @ 0 mls/hr IV .Q0M PRN; Protocol PRN Reason: Hypoglycemia Protocol Insulin Detemir (Levemir) 12 unit SC Q12 [facility] Last Admin: 07/24/18 12:07 Dose: 12 units Insulin Human Regular (Novolin R) 0 unit SC ACHS [facility]; Protocol Last Admin: 07/24/18 12:09 Dose: Not Given Methylprednisolone (Solu-Medrol) 125 mg IV DAILY [facility] Last Admin: 07/24/18 11:41 Dose: 125 mg Oxycodone/Acetaminophen (Percocet 5/325 Mg Tab) 1 tab PO Q4H PRN PRN Reason: Pain, Mild (1-3) Stop: 07/26/18 10:22 Last Admin: 07/24/18 11:39 Dose: 1 tab - Labs Labs: 07/24/18 06:29 07/24/18 06:29 PT 12.5 SECONDS (9.7-12.2) H 07/21/18 13:44 INR 1.1 07/21/18 13:44 APTT 31 SECONDS (21-34) 07/21/18 13:44 - Constitutional Appears: No Acute Distress - Head Exam Head Exam: ATRAUMATIC, NORMOCEPHALIC. absent: NORMAL INSPECTION (right sikhism bx site, bandage clean, dry and intact) - Eye Exam Eye Exam: EOMI, Normal appearance - ENT Exam ENT Exam: Mucous Membranes Moist, Normal Exam - Neck Exam Neck Exam: Normal Inspection - Respiratory Exam Respiratory Exam: Clear to Ausculation Bilateral, NORMAL BREATHING PATTERN - Cardiovascular Exam Cardiovascular Exam: REGULAR RHYTHM, +S1, +S2 - GI/Abdominal Exam GI & Abdominal Exam: Soft, Normal Bowel Sounds - Extremities Exam Extremities Exam: Normal Inspection. absent: Calf Tenderness, Pedal Edema - Neurological Exam Neurological Exam: Alert, Awake - Psychiatric Exam Psychiatric exam: Normal Affect, Normal Mood - Skin Skin Exam: Dry, Intact, Normal Color, Warm Assessment and Plan - Assessment and Plan (Free Text) Assessment: 62 year old male admitted with persistent headaches. Headaches -tylenol 650mg prn -CT head/MRI brain/MRA head all WNL, no acute pathology -neuro consult Dr. Pozo R/O Temporal Arteritis -solu-medrol 125mg IV qd -s/p temporal bx POD# 1 -oxycodone q4 prn -sx consult Dr. Escobedo -optho consult Dr. Quiroz DM2 -ISS -glimepiride 4mg q12 Ppx -heparin 5000 sc q12 -protonix 40mg po Dispo: Awaiting results of Temporal biopsy results to decrease steroids.
[2018-07-24] MEDS: Pantoprazole 40 mg EC Tab PO SCH (18:45)
[2018-07-25 07:08] LABS: BASO % 0.1 % (0.0-2.0); EOS % 0.1 % (0.0-4.0); HEMOGLOBIN 13.8 g/dL (12.0-18.0); LYMPH # 3.4 K/uL (1.0-4.3); LYMPH % 27.8 % (20.0-40.0); MEAN CELL VOLUME 83.8 fL (80.0-94.0); MEAN CORPUSCULAR HEMOGLOBIN 28.9 pg (27.0-31.0); MEAN CORPUSCULAR HGB CONC 34.4 g/dL (33.0-37.0); MEAN PLATELET VOLUME 8.1 fL (7.2-11.7); MONO # 0.6 K/uL (0.0-0.8); NEUT # 8.2 K/uL (1.8-7.0); RBC 4.79 Mil/uL (4.40-5.90); RED CELL DISTRIBUTION WIDTH 13.4 % (11.5-14.5); WHITE BLOOD COUNT 12.2 K/uL (4.8-10.8)
[2018-07-25 07:20] LABS: ALB/GLOB RATIO 1.3 (1.0-2.1); ALBUMIN 3.9 g/dL (3.5-5.0); ALT/SGPT 24 U/L (21-72); AST/SGOT 16 U/L (17-59); BLOOD UREA NITROGEN 15 mg/dL (9-20); CALCIUM 9.5 mg/dl (8.6-10.4); GFR NON-AFRICAN AMERICAN > 60
[2018-07-25] MEDS: Oxycodone/Acetaminophen 5/325 mg Tab PO PRN (08:25)
[2018-07-25] MEDS: Pantoprazole 40 mg EC Tab PO SCH ×2 (08:25→10:00)
[2018-07-25] MEDS: Insulin Detemir 100 units/ml Vial (Levemir) SC SCH ×2 (08:31→10:00)
[2018-07-25] MEDS: (Novolin R) Insulin Human Regular 100 units/ml vial SC SCH ×4 (08:31→21:47)
--- NOTE | 2018-07-25 16:29 | CP.PCM.PN ---
Subjective - Date & Time of Evaluation Date of Evaluation: 07/25/18 Time of Evaluation: 07:25 - Subjective Subjective: PGY-[address] Gifford Patient is seen and examined at bedside. Patient states his headache are better. Patient continues to having blurry vision. Patient admits to coughing last night multiple times. Patient denies fever, chills, chest pain, shortness of breath, nausea, vomiting, diarrhea or constipation. Patient is tolerating diet and ambulating. Objective - Vital Signs/Intake and Output Vital Signs (last 24 hours): Temp Pulse Resp BP Pulse Ox 97.3 F L 93 H 20 134/90 95 07/25/18 07:42 07/25/18 07:42 07/25/18 07:42 07/25/18 07:42 07/25/18 07:42 Intake and Output: 07/25/18 07/25/18 06:59 18:59 Intake Total 250 Balance 250 - Medications Medications: Current Medications Acetaminophen (Tylenol 325mg Tab) 650 mg PO Q6 PRN PRN Reason: Pain, moderate (4-7) Last Admin: 07/22/18 18:17 Dose: 650 mg Dextrose (Dextrose 50% Inj) 0 ml IV STAT PRN; Protocol PRN Reason: Hypoglycemia Protocol Dextrose (Glutose 15) 0 gm PO ONCE PRN; Protocol PRN Reason: Hypoglycemia Protocol Glimepiride (Amaryl) 4 mg PO Q12H [facility] Last Admin: 07/25/18 09:59 Dose: Not Given Glucagon (Glucagen Diagnostic Kit) 0 mg IM STAT PRN; Protocol PRN Reason: Hypoglycemia Protocol Heparin Sodium (Porcine) (Heparin) 5,000 units SC Q12 [facility] Last Admin: 07/25/18 10:00 Dose: Not Given Dextrose (Dextrose 5% In Water 1000 Ml) 1,000 mls @ 0 mls/hr IV .Q0M PRN; Protocol PRN Reason: Hypoglycemia Protocol Insulin Detemir (Levemir) 12 unit SC Q12 [facility] Last Admin: 07/25/18 10:00 Dose: Not Given Insulin Human Regular (Novolin R) 0 unit SC ACHS [facility]; Protocol Last Admin: 07/25/18 12:33 Dose: 5 units Methylprednisolone (Solu-Medrol) 125 mg IV DAILY [facility] Last Admin: 07/25/18 10:01 Dose: Not Given Oxycodone/Acetaminophen (Percocet 5/325 Mg Tab) 1 tab PO Q4H PRN PRN Reason: Pain, Mild (1-3) Stop: 07/26/18 10:22 Last Admin: 07/25/18 08:25 Dose: 1 tab Pantoprazole Sodium (Protonix Ec Tab) 40 mg PO DAILY [facility] Last Admin: 07/25/18 10:00 Dose: Not Given - Labs Labs: 07/25/18 06:46 07/25/18 06:46 PT 12.5 SECONDS (9.7-12.2) H 07/21/18 13:44 INR 1.1 07/21/18 13:44 APTT 31 SECONDS (21-34) 07/21/18 13:44 - Constitutional Appears: Well, Non-toxic, No Acute Distress - Head Exam Head Exam: ATRAUMATIC, NORMAL INSPECTION, NORMOCEPHALIC Additional comments: dressing in right temporal area, clean, dry and intact - Eye Exam Eye Exam: EOMI, Normal appearance - ENT Exam ENT Exam: Mucous Membranes Moist, Normal Exam - Neck Exam Neck Exam: Full ROM, Tenderness Additional comments: tenderness posterior neck, trapezius muscle on deep palpation - Respiratory Exam Respiratory Exam: Clear to Ausculation Bilateral, NORMAL BREATHING PATTERN - GI/Abdominal Exam GI & Abdominal Exam: Soft, Normal Bowel Sounds. absent: Distended, Guarding, Tenderness - Extremities Exam Extremities Exam: Full ROM, Normal Inspection - Back Exam Back Exam: Full ROM, NORMAL INSPECTION - Neurological Exam Neurological Exam: Alert, Awake, Oriented x3 - Psychiatric Exam Psychiatric exam: Normal Affect, Normal Mood - Skin Skin Exam: Dry, Intact, Normal Color, Warm Assessment and Plan - Assessment and Plan (Free Text) Plan: Headache, r/o temporal arteritis - pt with R-sided headache and vision changes - CT head: no acute findings - CXR: mild bibasilar atelectasis - CT soft tissue/neck- no significant findings - MRI - unremarkable - MRA - unremarkable - EKG: sinus tachy at 104 bpm with LAD - ESR elevated at 45 -- ESR 07/25 - - f/u repeat CRP - f/u KELLEY - ED course : solumedrol 1000mg IV in ED, reglan 10 IV in ED - Ophtho consulted, Dr. Quiroz - He has cataracts in both eyes. pt admitted for temporal arteritis. patient should follow optho outpatient for cataract management. no signs of diabetic retinopathy in both eyes. - Vascular Sx consulted, Dr. Escobedo - No further surgical intervention--dressing may be removed tomorrow, patient should follow up with Dr. Escobedo in his office in 2 weeks, F/U path management per primary -Neurology consult, Dr Pozo - continue empiric treatment, waiting results from temporal artery biopsy. - will continue following up recs Meds: decreased Prednisone from 125mg to 40mg IV Qdaily DM - FSG in ED: 330 - POC glucose -continue to be high - accuchecks ACHS - levemir 12u Q12 - discontinued - NPH 20 units BID - glimepiride 4mg PO Q12hr - change sliding scale from medium dose to sliding scale high dose ACHS - hypoglycemia protocol PPX: DVT: SCDs DM diet pain management - tylenol 650mg PO PRN for moderate pain Dispo: pending biopsy result for possible D/C home tomorrow. Plan discussed with Dr Gifford. Medical Management as per Dr Balta Elam, PGY-1
[2018-07-25] MEDS: (Novolin N) Insulin Human Isophane (NPH) 100 u/ml 10 ml vial SC SCH (21:45)
[2018-07-25] MEDS: MethylPREDNISolone 40 mg Vial IV SCH (21:48)
[2018-07-26] MEDS: (Novolin R) Insulin Human Regular 100 units/ml vial SC SCH ×4 (08:17→21:58)
[2018-07-26] MEDS: MethylPREDNISolone 40 mg Vial IV SCH ×2 (10:58→21:51)
[2018-07-26] MEDS: Pantoprazole 40 mg EC Tab PO SCH (10:58)
[2018-07-26] MEDS: (Novolin N) Insulin Human Isophane (NPH) 100 u/ml 10 ml vial SC SCH ×2 (10:59→21:58)
--- NOTE | 2018-07-26 12:36 | CP.PCM.PN ---
Subjective - Date & Time of Evaluation Date of Evaluation: 07/26/18 Time of Evaluation: 12:33 - Subjective Subjective: PGY-2 Progress Note Patient seen and examined at bedside. Per nursing no acute events occurred overnight. Patient still reports an headache he describes as throbbing in nature. He rates it an 8/10 in severity. He denies any chest pain, fevers, chills, nausea, vomiting, changes in vision, or any other complaints. Objective - Vital Signs/Intake and Output Vital Signs (last 24 hours): Temp Pulse Resp BP Pulse Ox 97.7 F 81 20 123/82 96 07/26/18 08:00 07/26/18 08:00 07/26/18 08:00 07/26/18 08:00 07/26/18 08:00 - Medications Medications: Current Medications Acetaminophen (Tylenol 325mg Tab) 650 mg PO Q6 PRN PRN Reason: Pain, moderate (4-7) Last Admin: 07/22/18 18:17 Dose: 650 mg Dextrose (Dextrose 50% Inj) 0 ml IV STAT PRN; Protocol PRN Reason: Hypoglycemia Protocol Dextrose (Glutose 15) 0 gm PO ONCE PRN; Protocol PRN Reason: Hypoglycemia Protocol Glimepiride (Amaryl) 4 mg PO Q12H [facility] Last Admin: 07/26/18 10:58 Dose: 4 mg Glucagon (Glucagen Diagnostic Kit) 0 mg IM STAT PRN; Protocol PRN Reason: Hypoglycemia Protocol Heparin Sodium (Porcine) (Heparin) 5,000 units SC Q12 [facility] Last Admin: 07/26/18 10:58 Dose: 5,000 units Dextrose (Dextrose 5% In Water 1000 Ml) 1,000 mls @ 0 mls/hr IV .Q0M PRN; Protocol PRN Reason: Hypoglycemia Protocol Insulin Human NPH (Novolin N) 20 unit SC Q12 [facility] Last Admin: 07/26/18 10:59 Dose: 20 units Insulin Human Regular (Novolin R) 0 unit SC ACHS [facility]; Protocol Last Admin: 07/26/18 08:17 Dose: 8 units Methylprednisolone (Solu-Medrol) 40 mg IV Q12 [facility] Last Admin: 07/26/18 10:58 Dose: 40 mg Pantoprazole Sodium (Protonix Ec Tab) 40 mg PO DAILY [facility] Last Admin: 07/26/18 10:58 Dose: 40 mg - Labs Labs: 07/25/18 06:46 07/25/18 06:46 PT 12.5 SECONDS (9.7-12.2) H 07/21/18 13:44 INR 1.1 07/21/18 13:44 APTT 31 SECONDS (21-34) 07/21/18 13:44 - Head Exam Head Exam: ATRAUMATIC, NORMAL INSPECTION - Eye Exam Eye Exam: EOMI - ENT Exam ENT Exam: Mucous Membranes Moist - Respiratory Exam Respiratory Exam: Clear to Ausculation Bilateral, NORMAL BREATHING PATTERN. absent: Prolonged Expiratory Phase, Respiratory Distress - Cardiovascular Exam Cardiovascular Exam: REGULAR RHYTHM, +S1, +S2 - GI/Abdominal Exam GI & Abdominal Exam: Soft, Normal Bowel Sounds - Extremities Exam Extremities Exam: Full ROM, Normal Inspection. absent: Pedal Edema - Back Exam Back Exam: NORMAL INSPECTION. absent: CVA tenderness (R), paraspinal tenderness - Neurological Exam Neurological Exam: Alert, Awake, CN II-XII Intact, Oriented x3 - Psychiatric Exam Psychiatric exam: Normal Affect, Normal Mood - Skin Skin Exam: Dry, Intact, Normal Color Assessment and Plan - Assessment and Plan (Free Text) Plan: Plan: Headache, r/o temporal arteritis - pt with R-sided headache and vision changes - CT head: no acute findings - CXR: mild bibasilar atelectasis - CT soft tissue/neck- no significant findings - MRI - unremarkable - MRA - unremarkable - EKG: sinus tachy at 104 bpm with LAD - ESR elevated at 45 -- ESR / - 22 - f/u repeat CRP - f/u KELLEY - ED course : solumedrol 1000mg IV in ED, reglan 10 IV in ED - Ophtho consulted, Dr. Quiroz - He has cataracts in both eyes. pt admitted for te mporal arteritis. patient should follow optho outpatient for cataract management. no signs of diabetic retinopathy in both eyes. - Vascular Sx consulted, Dr. Escobedo - No further surgical intervention--dressing may be removed tomorrow, patient should follow up with Dr. Escobedo in his office in 2 weeks, F/U path management per primary -Neurology consult, Dr Pozo - continue empiric treatment, waiting results from temporal artery biopsy. - will continue following up recs Meds: [id number] IV Qdaily DM - FSG in ED: 330 - POC glucose -continue to be high - accuchecks ACHS - levemir 12u Q12 - discontinued - NPH 20 units BID - glimepiride 4mg PO Q12hr - change sliding scale from medium dose to sliding scale high dose ACHS - hypoglycemia protocol All management per Dr. Gifford. Gregory Doan, PGY-2
[2018-07-27] MEDS: (Novolin R) Insulin Human Regular 100 units/ml vial SC SCH ×3 (07:52→16:30)
[2018-07-27] MEDS: Pantoprazole 40 mg EC Tab PO SCH (09:07)
[2018-07-27] MEDS: MethylPREDNISolone 40 mg Vial IV SCH (09:08)
[2018-07-27] MEDS: (Novolin N) Insulin Human Isophane (NPH) 100 u/ml 10 ml vial SC SCH (10:27)
--- NOTE | 2018-07-27 15:45 | CP.PCM.DIS ---
Provider - Provider Date of Admission: 07/21/18 19:31 Attending physician: Yemi Gifford Jr, MD Time Spent in preparation of Discharge (in minutes): 45 Hospital Course - Lab Results Lab Results: Most Recent Lab Values WBC 12.2 K/uL (4.8-10.8) H 07/25/18 06:46 RBC 4.79 Mil/uL (4.40-5.90) 07/25/18 06:46 Hgb 13.8 g/dL (12.0-18.0) 07/25/18 06:46 Hct 40.2 % (35.0-51.0) 07/25/18 06:46 MCV 83.8 fL (80.0-94.0) 07/25/18 06:46 MCH 28.9 pg (27.0-31.0) 07/25/18 06:46 MCHC 34.4 g/dL (33.0-37.0) 07/25/18 06:46 RDW 13.4 % (11.5-14.5) 07/25/18 06:46 Plt Count 362 K/uL (130-400) 07/25/18 06:46 MPV 8.1 fL (7.2-11.7) 07/25/18 06:46 Neut % (Auto) 67.0 % (50.0-75.0) 07/25/18 06:46 Lymph % (Auto) 27.8 % (20.0-40.0) 07/25/18 06:46 [place] % (Auto) 5.0 % (0.0-10.0) 07/25/18 06:46 Eos % (Auto) 0.1 % (0.0-4.0) 07/25/18 06:46 Baso % (Auto) 0.1 % (0.0-2.0) 07/25/18 06:46 Neut # (Auto) 8.2 K/uL (1.8-7.0) H 07/25/18 06:46 Lymph # (Auto) 3.4 K/uL (1.0-4.3) 07/25/18 06:46 [place] # (Auto) 0.6 K/uL (0.0-0.8) 07/25/18 06:46 Eos # (Auto) 0.0 K/uL (0.0-0.7) 07/25/18 06:46 Baso # (Auto) 0.0 K/uL (0.0-0.2) 07/25/18 06:46 ESR 22 mm/hr (0-15) H 07/25/18 14:20 PT 12.5 SECONDS (9.7-12.2) H 07/21/18 13:44 INR 1.1 07/21/18 13:44 APTT 31 SECONDS (21-34) 07/21/18 13:44 Sodium 138 mmol/L (132-148) 07/25/18 06:46 Potassium 3.8 mmol/L (3.6-5.2) 07/25/18 06:46 Chloride 99 mmol/L (98-107) 07/25/18 06:46 Carbon Dioxide 25 mmol/L (22-30) 07/25/18 06:46 Anion Gap 19 (10-20) 07/25/18 06:46 BUN 15 mg/dL (9-20) 07/25/18 06:46 Creatinine 0.5 mg/dL (0.8-1.5) L 07/25/18 06:46 Est GFR ( Amer) > 60 07/25/18 06:46 Est GFR (Non-Af Amer) > 60 07/25/18 06:46 POC Glucose (mg/dL) 349 mg/dL (65-110) H 07/27/18 11:27 Random Glucose 305 mg/dL (75-110) H 07/25/18 06:46 Calcium 9.5 mg/dl (8.6-10.4) 07/25/18 06:46 Phosphorus 4.0 mg/dL (2.5-4.5) 07/25/18 06:46 Magnesium 2.2 mg/dL (1.6-2.3) 07/25/18 06:46 Total Bilirubin 0.4 mg/dL (0.2-1.3) 07/25/18 06:46 AST 16 U/L (17-59) L 07/25/18 06:46 ALT 24 U/L (21-72) 07/25/18 06:46 Alkaline Phosphatase 104 U/L (38-126) 07/25/18 06:46 Troponin I < 0.0120 ng/mL (0.00-0.120) 07/21/18 13:44 C-Reactive Protein < 5.00 mg/L (0.0-9.9) 07/25/18 14:20 NT-Pro-B Natriuret Pep 31.1 pg/mL (0-900) 07/21/18 13:44 Total Protein 6.8 g/dL (6.3-8.3) 07/25/18 06:46 Albumin 3.9 g/dL (3.5-5.0) 07/25/18 06:46 Globulin 2.9 gm/dL (2.2-3.9) 07/25/18 06:46 Albumin/Globulin Ratio 1.3 (1.0-2.1) 07/25/18 06:46 - Hospital Course Hospital Course: Pt is a 62M with PMH arthritis, CAD, DM, HTN, HLD, hypothyroid who presents to ED complaining of R sided headache x3 days. He reports associated dizziness, vauge abdominal pain, NB/NB vomiting, palpitations, and blurry vision in b/l eyes. He denies previous history of this. He reports worsening of the headache this morning when waking up, and bleeding from the nose and mouth. He denies taking any aspirin or blood thinners. Pt denies chest pain, shortness of breath, diarrhea, dysuria. SxH: right shoulder, right knee FamH: denies SocH: denies etoh, tobacco, or recreational drug use Allergies: metformin (rash) Meds: glipizide 10 BID Hospital Course Patient was admitted and found to have an elevated ESR. Patient was seen by Neurology who suspected possible temporal arteritis. Patient underwent temporal artery biopsy while admitted. To address the symptoms patient was treated with IV steroids. Patient was also seen by optho who was able to rule out signs of diabetec retinopathy. Patient was also seen by vascular who determined there was no need for further surgical intervention. Patient symptoms improved and patient subsequently was discharged and advised to follow up with Dr. Gifford for biopsy results.. Imaging: CT head: no acute findings - CXR: mild bibasilar atelectasis - CT soft tissue/neck- no significant findings - MRI - unremarkable - MRA - unremarkable - EKG: sinus tachy at 104 bpm with LAD See EMR for full report. Discharge Instructions: 1.F/u with Dr. Gifford within one week of discharge. 2.Return to hospital for any new or worsening symptoms. Medications: 1.Amaryl 4mg PO Q12H, #60, No refills 2.NPH 30units BID, 1 Vial, No refills Discharge Exam - Head Exam Head Exam: ATRAUMATIC, NORMAL INSPECTION Discharge Plan - Discharge Medications Prescriptions: Glimepiride [Amaryl] 4 mg PO Q12 30 Days #60 tab Insulin Human NPH [Humulin N] 30 unit SC BID #1 ml - Follow Up Plan Condition: STABLE Disposition: HOME/ ROUTINE
[2018-07-27 16:44] VITALS: BP 151/89; PULSE 100; TEMP 98.2; O2SAT 98
== END 2018-07-27 17:35 | disposition home or self-care (01) | DRG 516 ==
LOC: C.ER 12:12 → C.9E 19:31 → C.3T 21:58
PROVIDERS: ADMIT Internal Medicine; ATTEND Internal Medicine
PROC: 03BS0ZX Excision of Right Temporal Artery, Open Approach, Diagnostic (ICD-10-PCS; principal; 2018-07-23 09:30)
DX: M31.6 Other giant cell arteritis (principal); J98.11 Atelectasis; H54.61 Unqualified visual loss, right eye, normal vision left eye; E78.5 Hyperlipidemia, unspecified; E11.65 Type 2 diabetes mellitus with hyperglycemia; G44.209 Tension-type headache, unspecified, not intractable; E03.9 Hypothyroidism, unspecified; I10 Essential (primary) hypertension; I25.10 Atherosclerotic heart disease of native coronary artery without angina pectoris; R04.0 Epistaxis; Z88.8 Allergy status to other drugs, medicaments and biological substances; Z91.81 History of falling

== ENCOUNTER 2018-08-09 16:23 | Emergency (ER) | payer MEDICARE ==
[2018-08-09 16:23] VITALS: BMI 40.1
[2018-08-09] MEDS ORDERED: Sodium Chloride 0.9% 1,000 ML IV STA (16:59)
[2018-08-09] MEDS ORDERED: Magnesium Sulfate 1 gm in D5W 1 GM/100 ML BAG IVPB STA (16:59)
[2018-08-09] MEDS ORDERED: Dexamethasone 4 mg/1 ml IVP STA (16:59)
--- NOTE | 2018-08-09 17:00 | C.PDOC ---
History Of Present Illness 62 years old male presents to ED for complaints of having worse than usual headache that began at 10:04AM today. Patient describes headache as currently more intense. Patient was admitted 07/21 for temporal arteritis s/p CT and Biopsy. Patient states headache is currently more intense. Patient reports usually taking Motrin and Gabapentin with some relief; however, last Gabapentin intake was at 2PM with no improvement. Denies fever, vomiting, or any other physical complaints. Time Seen by Provider: 08/09/18 16:46 Chief Complaint (Nursing): Headache History Per: Patient History/Exam Limitations: no limitations Onset/Duration Of Symptoms: Hrs, Worse Since Current Symptoms Are (Timing): Still Present Preceeding Symptoms: None Recent travel outside of the [place]: No Past Medical History Reviewed: Historical Data, Nursing Documentation, Vital Signs Vital Signs: Last Vital Signs Temp 98 F 08/09/18 16:27 Pulse 114 H 08/09/18 16:27 Resp 18 08/09/18 16:27 BP 131/84 08/09/18 16:27 Pulse Ox 98 08/09/18 16:27 - Medical History PMH: Arthritis, CAD, Diabetes, HTN, Hypercholesterolemia, Hypothyroidism - [facility] Procedures EXCISION OF RIGHT TEMPORAL ARTERY, OPEN APPROACH, DIAGNOSTIC (07/21/18) Family History: States: Unknown Family Hx - Social History Hx Alcohol Use: No Hx Substance Use: No - Immunization History Hx Tetanus Toxoid Vaccination: No Hx Influenza Vaccination: No Hx Pneumococcal Vaccination: No Review Of Systems Constitutional: Negative for: Fever, Chills Gastrointestinal: Negative for: Nausea, Vomiting Skin: Negative for: Rash Neurological: Positive for: Headache. Negative for: Weakness, Numbness, Change in Speech Physical Exam - Physical Exam Appears: Non-toxic, In Acute Distress (Moderate ), Other (Mild photophobia ) Skin: Warm, Dry, No Rash, Other (Healing biopsy scar of right temporal area ) Head: Atraumatic, Normacephalic Eye(s): bilateral: Normal Inspection Oral Mucosa: Moist Neck: Normal ROM, Supple Chest: Symmetrical, No Tenderness Cardiovascular: Rhythm Regular, No Murmur Respiratory: Normal Breath Sounds, No Decreased Breath Sounds, No Rales, No Rhonchi, No Wheezing Gastrointestinal/Abdominal: Bowel Sounds (Active ), Soft, No Tenderness Extremity: Normal ROM Extremity: Bilateral: Atraumatic, Normal Color And Temperature, Normal ROM Neurological/Psych: Oriented x3, Normal Speech, Normal Motor, Normal Sensation, Normal Reflexes, Other (No focal deficits ) ED Course And Treatment ECG: Interpreted By Me, Viewed By Me ECG Rhythm: Sinus Tachycardia (111 bpm) O2 Sat by Pulse Oximetry: 98 (RA) Pulse Ox Interpretation: Normal Progress - Re-Evaluation Re-evaluation Note: 08/09/18 18:26 IMPROVED APPEARS COMFORTABLE VSS 08/09/18 18:38 ASYMPT VSS - Data Reviewed Data Reviewed: Old records Medical Decision Making Medical Decision Making: Plan: * Decadron * Magnesium Sulfate * Reglan * IV Fluids * Toradol * Tylenol * Depacon Disposition Counseled Patient/Family Regarding: Diagnosis, Need For Followup - Disposition Referrals: YOUR,PMD [Other] Disposition: HOME/ ROUTINE Disposition Time: 18:38 Condition: IMPROVED Instructions: Headache, Adult (DC) Forms: [employer] (Slovak) Print Language: WOLOF - Clinical Impression Clinical Impression: Headache - Scribe Statement The provider has reviewed the documentation as recorded by the Scribryan Tran All medical record entries made by the Scribe were at my direction and personally dictated by me. I have reviewed the chart and agree that the record accurately reflects my personal performance of the history, physical exam, medical decision making, and the department course for this patient. I have also personally directed, reviewed, and agree with the discharge instructions and disposition.
[2018-08-09] MEDS ORDERED: Dexamethasone 4 mg/1 ml ONE (17:10)
[2018-08-09] MEDS ORDERED: Magnesium Sulfate 1 gm in D5W 1 GM/100 ML BAG IVPB ONE (17:11)
[2018-08-09 18:55] VITALS: BP 132/84; PULSE 102; RESP 25; TEMP 98; O2SAT 99
--- NOTE | 2018-08-11 12:51 | CARD ---
APPROVED REPORT Date of service: 08/09/2018 EKG Measurement Heart [id number] <Conclusion> Sinus tachycardia Minimal voltage criteria for LVH, may be normal variant Borderline ECG
== END 2018-08-09 18:58 | disposition home or self-care (01) ==
LOC: C.ER 16:23
DX: R51 Headache (principal)
CPT/HCPCS: 93005; 96361; 96365; 96367; 96375; 99284; J1100; J1885; J2765; J3475; J7030

== ENCOUNTER 2019-02-09 14:30 | Emergency (ER) | payer OTHER, MEDICARE ==
[2019-02-09 14:30] VITALS: BMI 40.1
[2019-02-09 14:52] VITALS: BP 125/87; PULSE 113; RESP 17; TEMP 98.7; O2SAT 97
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
== END 2019-02-09 17:14 | disposition home or self-care (01) ==
LOC: C.ER 14:30
DX: Z04.1 Encounter for examination and observation following transport accident (principal); E11.9 Type 2 diabetes mellitus without complications; E78.00 Pure hypercholesterolemia, unspecified; I10 Essential (primary) hypertension; I25.10 Atherosclerotic heart disease of native coronary artery without angina pectoris